=== PATIENT | female | born 2000 | race Caucasian/White ===

== ENCOUNTER 2024-09-09 17:36 | Emergency (ER) | payer OTHER ==
[~2024-09-09] VITALS: Ht 167.6 cm; Wt 63.6 kg
[2024-09-09] MEDS ORDERED: Ondansetron 4 MG/2 ML VIAL IV ONE (18:15)
[2024-09-09] MEDS ORDERED: NS 1,000 ML IV ONE (18:15)
[2024-09-09] MEDS ORDERED: Iohexol 300 - 100 ML VIAL IV ONE (18:23)
[2024-09-09 18:24] LABS: HEMATOCRIT 44.5 % (37.0-47.0); HEMOGLOBIN 14.9 g/dL (12.5-16.0); MEAN CELL VOLUME 91 fl (78-100); MEAN CORPUSCULAR HEMOGLOBIN 30 pg (27-31); MEAN CORPUSCULAR HGB CONC 34 g/dL (33-37); MEAN PLATELET VOLUME 9.4 fl (7.4-10.4); PLATELET COUNT 292 K/mm3 (130-400); RED BLOOD COUNT 4.91 M/mm3 (4.10-5.30); RED CELL DISTRIBUTION WIDTH 13.4 % (11.5-14.5); WHITE BLOOD COUNT 9.6 K/mm3 (4.8-10.8)
[2024-09-09 18:31] LABS: ALBUMIN 4.3 g/dL (3.5-5.0)
[2024-09-09 18:33] LABS: CALCIUM 8.6 mg/dL (8.3-10.5)
[2024-09-09 18:34] LABS: TOTAL PROTEIN 7.3 g/dL (6.4-8.3)
[2024-09-09 18:36] LABS: TOTAL BILIRUBIN 1.7 mg/dL (0.2-1.2)
[2024-09-09 18:40] LABS: BAND 5 % (0-10); LYMPHOCYTE 6 % (20-51); MONOCYTE 1 % (3-10); NEUTROPHILS 88 % (42-75)
[2024-09-09] MEDS ORDERED: cefTRIAXone 1 G in Water For Injection,Sterile 10 ML IV ONE (19:15)
[2024-09-09 19:16] LABS: PH-URINE 5.5 (5.0 - 8.0); URINE APPEARANCE CLEAR (CLEAR); URINE BILIRUBIN NEGATIVE (NEGATIVE); URINE BLOOD NEGATIVE (NEGATIVE); URINE COLOR YELLOW (YELLOW); URINE GLUCOSE NEGATIVE (NEGATIVE); URINE KETONE 2+ (NEGATIVE); URINE LEUKOCYTE ESTERASE NEGATIVE (NEGATIVE); URINE NITRATE NEGATIVE (NEGATIVE); URINE PROTEIN(semi-quant) NEGATIVE (NEGATIVE)
[2024-09-09 19:19] LABS: URINE MUCUS PRESENT (NOT PRESENT); URINE WBC 0-1 /hpf (0-3)
[2024-09-09] MEDS ORDERED: ZOFRAN ODT4 MG PO (19:27)
[2024-09-09] MEDS ORDERED: BACTRIM DS TAB1 EACH PO (19:27)
[2024-09-09 19:59] VITALS: BP 130/84
== END 2024-09-09 20:03 | disposition home or self-care (01) ==
LOC: ED 17:36
PROVIDERS: Family Medicine
DX: N39.0 Urinary tract infection, site not specified (principal); F17.290 Nicotine dependence, other tobacco product, uncomplicated; Z90.49 Acquired absence of other specified parts of digestive tract
CPT/HCPCS: J0696; J2405; J7030; Q9967